=== PATIENT | female | born 1925 | race Caucasian/White ===

== ENCOUNTER 2016-10-05 17:15 | Observation (INO) | payer OTHER ==
[~2016-10-05] VITALS: Ht 170.2 cm; Wt 47.9 kg
[~2016-10-05 17:15] MED LIST: AGG PO; CALCIUM CARBONATE 1250 MG/5 ML PO; CHOL100010 PO; KPP250 PO; LEVO-217 PO; LPT20 PO; VSC/5 PO; VTMB12 PO
[2016-10-05] MEDS ORDERED: SODIUM CHLORIDE 0.9% 1000ML 1,000 ML IV SCH (17:30)
--- NOTE | 2016-10-05 17:47 | DIAGNOSTIC IMAGING REPORT ---
CHEST ONE VIEW PORTABLE CLINICAL HISTORY: Stroke COMPARISON STUDY: 08/13/2014 FINDINGS: The heart is mildly enlarged. There is aortic tortuosity. There is no overt failure. There is no focal pulmonary consolidation. There are no significant pleural effusions.[ IMPRESSION: AP portable study. No acute findings. Electronically signed by: Freedom Moctezuma M.D. 10/05/2016 5:46 PM Dictated Date/Time: 10/05/2016 5:46 PM
[2016-10-05 18:00] LABS: BASO % 0.6 %; BASO ABS # 0.04 K/uL (0-0.2); COMPLETE YES; EOS % 2.6 %; HEMATOCRIT 37.5 % (37-47); IG% 0.2 %; LYMPH % 21.2 %; LYMPH ABS # 1.33 K/uL (1.2-3.4); MEAN CELL VOLUME 90.4 fL (80-100); MEAN CORPUSCULAR HEMOGLOBIN 31.1 pg (25-34); MEAN CORPUSCULAR HGB CONC 34.4 g/dl (32-36); MONO % 7.5 %; NEUT % 67.9 %; PLATELET COUNT 225 K/uL (130-400); RED BLOOD COUNT 4.15 M/uL (4.2-5.4); WHITE BLOOD COUNT 6.27 K/uL (4.8-10.8)
--- NOTE | 2016-10-05 18:01 | EMERGENCY ROOM VISIT NOTE ---
History Report prepared by Michelle: Cooper Oswald Under the Supervision of: Dr. Curt Tapia M.D. First contact with patient: 17:27 Chief Complaint: STROKE SYMPTOMS Stated Complaint: TROUBLE SPEAKING, SOUNDS INSTEAD OF WORDS History of Present Illness The patient is an 89 year old female who presents to the Emergency Room with complaints of difficulty speaking that started around 1550 today (1hr, 15 min ago). These symptoms began to resolve on the way into the ED. Per the patient's daughter, the patient experienced an episode of "using sounds instead of words. " She was also experiencing a headache at this time. The patient did not experience facial drooping or weakness. Per the patient's , the patient does not take blood thinners regularly. The patient has no past neurological history. The patient has no complaints at this time. Source of History: patient, family, spouse/significant other Onset: 1550 today Position: other (Neurological System ) Timing: resolved Modifying Factors (Worsening): other (None) Associated Symptoms: + headache, No weakness Review of Systems See HPI for pertinent positives & negatives. A total of 10 systems reviewed and were otherwise negative. Past Medical & Surgical Medical Problems: (1) COPD (chronic obstructive pulmonary disease) (2) GERD (gastroesophageal reflux disease) (3) Hx of TIA (transient ischemic attack) and stroke (4) Hypertension (5) Hypothyroidism (6) Migraines (7) Osteoporosis (8) Urinary tract infection Surgical Problems: (1) S/P appendectomy (2) S/P hip replacement (3) S/P tonsillectomy and adenoidectomy Family History FHx: heart disease Hypertension Social History Smoking Status: Never Smoker Alcohol Use: none Drug Use: none Marital Status: Housing Status: lives with family Occupation Status: retired Current/Historical Medications Scheduled Atorvastatin (Atorvastatin Calcium), 20 MG PO QAM Calcium Carbonate (Calcium Carbonate), 5 ML PO DAILY Cholecalciferol (D3), 800 UNIT PO QAM Clopidogrel Bisulfate (Clopidogrel), 75 MG PO QAM Donepezil HCl (Donepezil HCl), 10 MG PO HS Levetiractam (Keppra), 250 MG PO BID Levothyroxine Sodium (Levothyroxine Sodium), 50 MCG PO QAM Allergies Coded Allergies: Sulfa Drugs (Verified Allergy, Mild, 10/05/16) Physical Exam Vital Signs Date Time Temp Pulse Resp B/P Pulse Ox O2 Delivery O2 Flow Rate FiO2 10/05/16 18:59 68 16 149/76 97 Room Air 10/05/16 18:30 69 16 131/73 97 Room Air 10/05/16 18:18 72 16 141/77 96 Room Air 10/05/16 18:02 64 18 12/93 98 Room Air 10/05/16 18:00 69 10/05/16 17:41 96 Room Air 10/05/16 17:40 65 18 130/65 97 Room Air 10/05/16 17:20 37.0 78 18 135/67 96 Room Air Physical Exam GENERAL: Patient is in no acute distress. HEENT: No acute trauma, normocephalic atraumatic, mucous membranes moist, no nasal congestion, no scleral icterus. NECK: No stridor, no adenopathy, no meningismus, trachea is midline. LUNGS: Clear to auscultation bilaterally, no wheeze, no rhonchi, breath sounds equal. HEART: Without murmurs gallops or rubs, regular rate and rhythm. ABDOMEN: Soft, nontender, bowel sounds positive, no hernias, no peritonitis. EXTREMITIES: No cyanosis or edema, full range of motion of all the joints without pain or difficulty, no signs for acute trauma. NEUROLOGIC: No facial droop or speech slur. No pronator drift or cerebellar dysfunction. Oriented x 3, no acute motor or sensory deficits, no focal weakness. SKIN: No rash, no jaundice, no diaphoresis. Medical Decision & Procedures ER Provider Diagnostic Interpretation: X ray results and stated below per my interpretation and radiologist interpretation. Other radiology results and stated below per my review and radiologist interpretation: CT HEAD WITHOUT CONTRAST (CT) CLINICAL HISTORY: Stroke COMPARISON STUDY: CT scan dated 08/13/2014 TECHNIQUE: Axial CT of the brain is performed from the vertex to the skull base. IV contrast was not administered for this examination. CT DOSE: 638.56 mGycm FINDINGS: No intra or extra-axial mass lesions are visualized. There is no CT evidence of acute cortical infarction. There is no evidence of midline shift. There is no acute hemorrhage. No calvarial fractures are visualized. There are patchy white matter hypodensities likely on a small vessel basis. 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 There is no evidence of pathologic ventricular dilatation. There is no evidence of acute sinusitis IMPRESSION: No acute intracranial findings Electronically signed by: Freedom Moctezuma M.D. 10/05/2016 6:19 PM Dictated Date/Time: 10/05/2016 6:17 PM CHEST ONE VIEW PORTABLE CLINICAL HISTORY: Stroke COMPARISON STUDY: 08/13/2014 FINDINGS: The heart is mildly enlarged. There is aortic tortuosity. There is no overt failure. There is no focal pulmonary consolidation. There are no significant pleural effusions.[ IMPRESSION: AP portable study. No acute findings. Electronically signed by: Freedom Moctezuma M.D. 10/05/2016 5:46 PM Dictated Date/Time: 10/05/2016 5:46 PM Laboratory Results 10/05/16 17:45 Red Blood Count 4.15, Mean Corpuscular Volume 90.4, Mean Corpuscular Hemoglobin 31.1, Mean Corpuscular Hemoglobin Concent 34.4, Mean Platelet Volume 10.0, Neutrophils (%) (Auto) 67.9, Lymphocytes (%) (Auto) 21.2, Monocytes (%) (Auto) 7.5, Eosinophils (%) (Auto) 2.6, Basophils (%) (Auto) 0.6, Neutrophils # (Auto) 4.26, Lymphocytes # (Auto) 1.33, Monocytes # (Auto) 0.47, Eosinophils # (Auto) 0.16, Basophils # (Auto) 0.04 10/05/16 17:45 Test 10/05/16 17:45 10/05/16 19:00 White Blood Count 6.27 K/uL (4.8-10.8) Red Blood Count 4.15 M/uL (4.2-5.4) Hemoglobin 12.9 g/dL (12.0-16.0) Hematocrit 37.5 % (37-47) Mean Corpuscular Volume 90.4 fL (80-100) Mean Corpuscular Hemoglobin 31.1 pg (25-34) Mean Corpuscular Hemoglobin Concent 34.4 g/dl (32-36) Platelet Count 225 K/uL (130-400) Mean Platelet Volume 10.0 fL (7.4-10.4) Neutrophils (%) (Auto) 67.9 % Lymphocytes (%) (Auto) 21.2 % Monocytes (%) (Auto) 7.5 % Eosinophils (%) (Auto) 2.6 % Basophils (%) (Auto) 0.6 % Neutrophils # (Auto) 4.26 K/uL (1.4-6.5) Lymphocytes # (Auto) 1.33 K/uL (1.2-3.4) Monocytes # (Auto) 0.47 K/uL (0.11-0.59) Eosinophils # (Auto) 0.16 K/uL (0-0.5) Basophils # (Auto) 0.04 K/uL (0-0.2) RDW Standard Deviation 47.3 fL (36.4-46.3) RDW Coefficient of Variation 14.2 % (11.5-14.5) Immature Granulocyte % (Auto) 0.2 % Immature Granulocyte # (Auto) 0.01 K/uL (0.00-0.02) Prothrombin Time 9.8 SECONDS (9.0-12.0) Prothromb Time International Ratio 0.9 (0.9-1.1) Activated Partial Thromboplast Time 23.6 SECONDS (21.0-31.0) Partial Thromboplastin Ratio 0.9 Anion Gap 10.0 mmol/L (3-11) Est Creatinine Clear Calc Drug Dose 28.9 ml/min Estimated GFR () 57.8 Estimated GFR (Non- 49.9 BUN/Creatinine Ratio 28.3 (10-20) Calcium Level 8.7 mg/dl (8.5-10.1) Total Creatine Kinase 177 U/L (26-192) Creatine Kinase MB 2.1 ng/ml (0.5-3.6) Creatine Kinase MB Ratio 1.2 (0-3.0) Troponin I < 0.015 ng/ml (0-0.045) Laboratory results reviewed by me. Medications Administered Medications (Trade) Dose Ordered Sig/Luis Alberto Route Start Time Stop Time Status Last Admin Dose Admin Sodium Chloride (Nss 1000ml) 1,000 ml @ 50 mls/hr Q20H IV 10/05/16 17:30 11/04/16 17:29 10/05/16 17:54 50 MLS/HR Aspirin (Aspirin Chew) 324 mg NOW STAT PO 10/05/16 18:33 10/05/16 18:35 DC 10/05/16 18:57 324 MG ECG Indication: altered mental status Rate (beats per minute): 67 Rhythm: normal sinus Findings: RBBB, no acute ischemic change, no ectopy ED Course 172: The patient was evaluated in room A3. A complete history and physical exam was performed. 173: Ordered Sodium Chloride 1,000 ml @ 50 mls/hr IV. 183: Ordered Aspirin 324 mg PO. 183: Discussed the patient's case with Dr. Mcrae ([facility]). The patient will be evaluated for further management. 1845: I updated the patient and her family on the treatment plan. They agreeable at this time. Medical Decision Differential diagnosis includes but is not limited to TIA, CVA, intracranial bleeding, intracranial mass, infection, UTI, dysrhythmia, electrolyte imbalance. There is no leukocytosis or worrisome anemia. No significant electrolyte abnormality or kidney failure. EKG shows a normal sinus rhythm with a right bundle branch block. No acute ischemia. Cardiac enzyme testing 1 is not suggestive of acute cardiac injury. Chest x-ray shows some chronic findings, no CHF or pneumonia. Brain CT shows no bleed or mass effect. There was no coagulopathy. On my exam, there were no focal neurologic deficits. The patient 's speech issues had resolved. Patient received a small amount of IV saline, she was given oral aspirin. She has remained symptom-free here in the emergency room. I talked to the patient and her family, I talked with case management. Given the concern for TIA/CVA, admission/observation was warranted. The on-call hospitalist was consulted. Consults Time Called: 1833 Consulting Physician: Dr. Mcrae ([facility]) Returned Call: [phone] Discussed the patient's case with Dr. Mcrae ([facility]). The patient will be evaluated for further management. Impression Primary Impression: Stroke-like symptoms Scribe Attestation The scribe's documentation has been prepared under my direction and personally reviewed by me in its entirety. I confirm that the note above accurately reflects all work, treatment, procedures, and medical decision making performed by me. Departure Information Dispostion Being Evaluated By Hospitalist Referrals Hi Carbajal M.D. (PCP) Patient Instructions [facility]
[2016-10-05 18:03] LABS: INR 0.9 (0.9-1.1); PARTIAL THROMBOPLASTIN RATIO 0.9; PROTHROMBIN TIME (PATIENT) 9.8 SECONDS (9.0-12.0)
--- NOTE | 2016-10-05 18:20 | DIAGNOSTIC IMAGING REPORT ---
CT HEAD WITHOUT CONTRAST (CT) CLINICAL HISTORY: Stroke COMPARISON STUDY: CT scan dated 08/13/2014 TECHNIQUE: Axial CT of the brain is performed from the vertex to the skull base. IV contrast was not administered for this examination. CT DOSE: 638.56 mGycm FINDINGS: No intra or extra-axial mass lesions are visualized. There is no CT evidence of acute cortical infarction. There is no evidence of midline shift. There is no acute hemorrhage. No calvarial fractures are visualized. There are patchy white matter hypodensities likely on a small vessel basis. 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 There is no evidence of pathologic ventricular dilatation. There is no evidence of acute sinusitis IMPRESSION: No acute intracranial findings Electronically signed by: Freedom Moctezuma M.D. 10/05/2016 6:19 PM Dictated Date/Time: 10/05/2016 6:17 PM
[2016-10-05 18:21] LABS: BLOOD UREA NITROGEN 28 mg/dl (7-18); BUN/CREATININE RATIO 28.3 (10-20); CALCIUM 8.7 mg/dl (8.5-10.1); CARBON DIOXIDE 26 mmol/L (21-32); CHLORIDE 105 mmol/L (98-107); GLUCOSE 94 mg/dl (70-99); POTASSIUM 4.2 mmol/L (3.5-5.1); SODIUM 141 mmol/L (136-145)
[2016-10-05 18:25] LABS: CKMB/CK RATIO 1.2 (0-3.0)
[2016-10-05] MEDS ORDERED: ARC10 PO (18:32)
[2016-10-05] MEDS ORDERED: CALC1250 PO (18:32)
[2016-10-05] MEDS ORDERED: PLV75 PO (18:32)
[2016-10-05] MEDS ORDERED: LPT/20 PO (18:32)
[2016-10-05] MEDS ORDERED: CHOL1CAP12 PO (18:32)
[2016-10-05] MEDS ORDERED: KPP/250 PO (18:32)
[2016-10-05] MEDS ORDERED: LEVO50TA6 PO (18:32)
[2016-10-05] MEDS ORDERED: ASPIRIN 81 MG CHEW PO STA (18:33)
[2016-10-05] MEDS ORDERED: POLYETHYLENE (MIRALAX) 17 GM PACK PO PRN (19:15)
[2016-10-05] MEDS ORDERED: ALUMINUM/MAGNESIUM/SIMETH (MAALOX MAX) 30 ML UDC PO PRN (19:15)
[2016-10-05] MEDS ORDERED: MAGNESIUM HYDROXIDE SUSP 30 ML UDC PO PRN (19:15)
[2016-10-05] MEDS ORDERED: ONDANSETRON INJ 2 MG/ML 2 ML VIAL IV PRN (19:15)
[2016-10-05 19:25] LABS: BENZODIAZEPINE, URINE NEG (NEG); COCAINE,URINE NEG (NEG); PHENCYCLIDINE, URINE NEG (NEG)
--- NOTE | 2016-10-05 20:00 | HISTORY & PHYSICAL EXAMINATION ---
DATE OF ADMISSION: 10/05/2016 CHIEF COMPLAINT: Trouble speaking. HISTORY OF PRESENT ILLNESS: This is an 89-year-old female who presents to Emergency Room with difficulty speaking that started around 4:00 p.m. The symptoms lasted for about 30 minutes and resulted in the way to Emergency Room. As per patient's daughter, patient experienced episode of incoherent sounds instead of words. She was also experiencing headache at that time but did not have any facial droop or weakness. As per patient's , she did not take her blood thinners regularly. She has no past neurological history. She has no complaints. REVIEW OF SYSTEMS: Negative except as above. Ten out of 14 systems were reviewed. PAST MEDICAL HISTORY: COPD, GERD, TIA, hypertension, hypothyroidism, migraine, osteoporosis, urinary tract infection, appendectomy, hip replacement, tonsillectomy. FAMILY HISTORY: Heart disease, hypertension. SOCIAL HISTORY: Does not smoke, does not drink, does not use drugs. . MEDICATIONS: Atorvastatin 20 mg p.o. daily, calcium carbonate 5 mg p.o. daily, cholecalciferol 800 international units p.o. daily, Plavix 75 mg p.o. daily, donepezil 10 mg p.o. at bedtime, Keppra 250 mg p.o. b.i.d., levothyroxine 50 mcg p.o. daily. ALLERGIES: SULFA DRUGS. PHYSICAL EXAMINATION: VITAL SIGNS: Temperature 37.0, pulse 68, respirations 16, blood pressure 149/76, 97% on room air. GENERAL: Not in acute distress. HEENT: Normocephalic, atraumatic. PERRLA, EOMI. Mouth moist, no lesions. NECK: No JVD. Trachea midline. Throat is not enlarged. LUNGS: Clear to auscultation bilateral. No wheezes, no rhonchi. HEART: S1, S2, RRR. ABDOMEN: Soft, nontender, nondistended. Bowel sounds present bilateral. EXTREMITIES: No clubbing, cyanosis or edema. NEUROLOGICAL: Cranial nerves II-XII are intact. Motor sensory are normal. Deep tendon reflexes 2+ bilateral. Gait was not checked. No facial droop or speech problem, oriented x3. SKIN: No rash. No jaundice. LYMPHATIC: No pathological lymphadenopathy. CT scan of the head, no acute intracranial abnormalities. Chest x-ray normal. LABORATORY DATA: CBC normal. BMP normal except for BUN of 28. EK beats per minute, right bundle branch block. No acute ST-T wave changes. ASSESSMENT AND PLAN: This is an 89-year-old female who comes with difficulty speaking. 1. Transient ischemic attack. Admit to telemetry. Check lipid profile in the morning. Check MRI of the brain, ultrasound of carotids, ultrasound of the heart. Continue with Plavix. physical therapy and occupational therapy evaluation. Continue Lipitor. The patient received oral aspirin in the Emergency Room. 2. Hypothyroidism. Continue levothyroxine 50 mcg p.o. daily. 3. Mild dementia. Continue Aricept 10 mg p.o. daily. 4. Deep venous thrombosis and gastrointestinal prophylaxis. The patient is a full code. TIME SPENT ON DOING THIS ADMISSION: 40 minutes. KATERIN
--- NOTE | 2016-10-05 20:29 | DIAGNOSTIC IMAGING REPORT ---
ULTRASOUND OF THE CAROTID ARTERIES CLINICAL HISTORY: carotid artery stenosis COMPARISON STUDY: 08/13/2014 TECHNIQUE: Real-time, grayscale, and color Doppler sonography of the carotid arteries was performed. Imaging reviewed in the transverse and longitudinal planes. NASCET criteria was utilized for stenosis calcification. FINDINGS: There is minimal atherosclerotic plaque present . The peak systolic velocity within the right internal carotid artery is 51 cm/sec. The systolic velocity ratio of right internal to common carotid artery is 0.8. The peak systolic velocity within the left internal carotid artery is 81 cm/sec. The systolic velocity ratio left internal to common carotid artery is 1.7. Antegrade flow is seen in the vertebral arteries. The external carotid arteries are patent. IMPRESSION: No evidence of hemodynamically significant carotid stenosis. Electronically signed by: Freedom Moctezuma M.D. 10/05/2016 8:27 PM Dictated Date/Time: 10/05/2016 8:26 PM
[2016-10-05] MEDS ORDERED: DONEPEZIL HCL 10 MG TAB PO SCH (21:00)
[2016-10-05] MEDS ORDERED: IV FLUIDS COMPLETED PRN (21:15)
--- NOTE | 2016-10-05 21:16 | DIAGNOSTIC IMAGING REPORT ---
MRI OF THE BRAIN WITHOUT CONTRAST CLINICAL HISTORY: Difficulty speaking. Transient ischemic attack. COMPARISON STUDY: Head CT dated 10/05/2016, MRI the brain dated 08/13/2014 FINDINGS: Sagittal T1, axial diffusion, proton density and T2 weighted axial, coronal FLAIR, and axial T1-weighted images were acquired. No intra or extra-axial mass lesions are visualized Axial diffusion-weighted images reveal no evidence of acute or subacute infarction. There is mild ventricular dilatation, in keeping with the degree of volume loss. Proton density T2-weighted and FLAIR images reveal scattered foci of increased T2 signal within the white matter, likely on a small vessel basis. There are no abnormal flow voids. IMPRESSION: 1. No acute intracranial findings 2. No evidence of acute or subacute infarction 3. No evidence of intracranial mass on this noncontrast study Electronically signed by: Freedom Moctezuma M.D. 10/05/2016 9:15 PM Dictated Date/Time: 10/05/2016 9:12 PM
[2016-10-05 22:00] VITALS: BP 162/84; PULSE 77; TEMP 36.4; O2SAT 96; Ht 170.2 cm; Wt 47.9 kg
[2016-10-05] MEDS: LEVETIRACETAM 250 MG TAB PO SCH (22:09)
[2016-10-05] MEDS: HEPARIN SOD 5000 UNIT/0.5 ML CARP SQ SCH (22:10)
[2016-10-05 23:06] VITALS: BP 100/59; PULSE 79; TEMP 36.6; O2SAT 95
[2016-10-06 03:03] VITALS: BP 129/75; PULSE 79; TEMP 36.5; O2SAT 95
[2016-10-06] MEDS ORDERED: LEVOTHYROXINE 50 MCG TAB PO SCH (06:30)
[2016-10-06 06:46] LABS: BASO % 0.7 %; BASO ABS # 0.04 K/uL (0-0.2); COMPLETE YES; EOS % 3.6 %; HEMATOCRIT 36.1 % (37-47); IG% 0.4 %; LYMPH % 23.8 %; LYMPH ABS # 1.27 K/uL (1.2-3.4); MEAN CELL VOLUME 90.3 fL (80-100); MEAN CORPUSCULAR HEMOGLOBIN 31.3 pg (25-34); MEAN CORPUSCULAR HGB CONC 34.6 g/dl (32-36); MEAN PLATELET VOLUME 10.1 fL (7.4-10.4); MONO % 9.2 %; NEUT % 62.3 %; PLATELET COUNT 205 K/uL (130-400); WHITE BLOOD COUNT 5.34 K/uL (4.8-10.8)
[2016-10-06 07:23] LABS: BUN/CREATININE RATIO 18.9 (10-20); CALCIUM 8.4 mg/dl (8.5-10.1); CHOLESTEROL/HDL RATIO 2.2; CREATININE 0.96 mg/dl (0.60-1.20)
[2016-10-06 07:33] VITALS: BP 148/74; PULSE 66; TEMP 36.3; O2SAT 95
[2016-10-06] MEDS: LEVETIRACETAM 250 MG TAB PO SCH (07:47)
[2016-10-06] MEDS: HEPARIN SOD 5000 UNIT/0.5 ML CARP SQ SCH (07:50)
[2016-10-06] MEDS ORDERED: ATORVASTATIN 20 MG TAB PO SCH (09:00)
[2016-10-06] MEDS ORDERED: CALCIUM CARBONATE 1250 MG/5 ML PO SCH (09:00)
[2016-10-06] MEDS ORDERED: CLOPIDOGREL BISULFATE 75 MG TAB PO SCH (09:00)
[2016-10-06 10:08] LABS: URINE APPEARANCE CLEAR (CLEAR); URINE BILIRUBIN NEG (NEG); URINE COLOR YELLOW; URINE EPITHELIAL CELL AUTO 0-5 /lpf (0-5); URINE NITRITE NEG (NEG); URINE PH 6.5 (4.5-7.5); URINE SPECIFIC GRAVITY 1.007 (1.000-1.030); UROBILINOGEN NEG (NEG); ZZUR CULT IF INDIC CLEAN CATCH NO
[2016-10-06 10:15] LABS: MANUAL MICROSCOPIC REQUIRED? NO; REVIEW REQ? NO
--- NOTE | 2016-10-06 11:16 | ECHOCARDIOGRAM REPORT ---
*NOTICE TO RECEIVING [employer] This information is strictly Confidential and protected under [place] law. [place] law prohibits you from making any further disclosure of this information unless further disclosure is expressly permitted by the written consent of the person to whom it pertains or is authorized by law. A general authorization for the release of medical or other information is not sufficient for this purpose. Hospital accepts no responsibility if the information is made available to any other person, INCLUDING THE PATIENT. Interpretation Summary * Name: MEGAN IFNE Study Date: 10/06/2016 08:01 AM BP: 148/74 mmHg * Patient Location: [facility]\S\N276\S\1 HR: 68 * : 1925 (M/d/yyyy) Gender: Female Height: 67 in * Age: 89 yrs Ethnicity: CA Weight: 105 lb * Ordering Physician: Jim Mcrae * Referring Physician: Self, Referred * Performed By: Radha Newman RCS * * Reason For Study: CVA * BSA: 1.5 m2 * -- Conclusions -- * 1. Normal LV size and wall thickness. * 2. Normal LV systolic function. LVEF 60-65%. No regional wall motion abnormalities. * 3. Normal RV size and function. * 4. Mild aortic regurgitation. * 5. Moderate mitral annular calcification. Trace MR. * 6. Grade I diastolic dysfunction. * 7. Normal estimated PA and RA pressures. * 8. No cardiac source of emboli identified. Prior saline contrast study in 2013 was negative. * 9. Compared with prior study on 08/14/2014: No significant changes. Procedure Details * Left Ventricle The left ventricle is grossly normal size. There is normal left ventricular wall thickness. Ejection Fraction = 60-65%. No regional wall motion abnormalities noted. * Right Ventricle The right ventricle is grossly normal size. The right ventricular systolic function is normal as assessed by tricuspid annular plane systolic excursion (TAPSE) (normal >1.5 cm). * Atria The left atrial size is normal. Right atrial size is normal. No ASD detected; PFO is not assessed. * Mitral Valve There is moderate mitral annular calcification. There is no mitral valve stenosis. There is trace mitral regurgitation. * Tricuspid Valve The tricuspid valve is not well visualized, but is grossly normal. There is trace tricuspid regurgitation. Right ventricular systolic pressure is normal. * Aortic Valve No hemodynamically significant valvular aortic stenosis. Mild aortic regurgitation. * Pulmonic Valve The pulmonary valve is inadequately visualized, but the Doppler data is adequate for interpretation. There is no pulmonic valvular stenosis. There is no pulmonic valvular regurgitation. * Great Vessels The aortic root and proximal ascending aorta are normal sized. * Pericardium/Pleural There is no pericardial effusion. * Great Vessels Normal inferior vena cava size and collapsability with sniff indicates a normal right atrial pressure of 3 mmHg * Left Ventricular Diastolic Function Grade I diastolic dysfunction, (abnormal relaxation pattern). * * MMode 2D Measurements and Calculations * IVSd 0.89 cm * IVSs 0.96 cm * * LVIDd 3.9 cm * LVIDs 3.1 cm * LVPWd 0.79 cm * LVPWs 0.89 cm * * IVS/LVPW 1.1 * FS 20.4 % * EDV(Teich) 66.7 ml * ESV(Teich) 38.5 ml * EF(Teich) 42.2 % * * EDV(cubed) 60.2 ml * ESV(cubed) 30.4 ml * EF(cubed) 49.5 % * % IVS thick 7.6 % * % LVPW thick 13.1 % * * LV mass(C)d 96.6 grams * LV mass(C)dI 62.8 grams/m\S\2 * LV mass(C)s 77.6 grams * LV mass(C)sI 50.5 grams/m\S\2 * * SV(Teich) 28.2 ml * SI(Teich) 18.3 ml/m\S\2 * SV(cubed) 29.8 ml * SI(cubed) 19.4 ml/m\S\2 * * Ao root diam 3.7 cm * Ao root area 10.9 cm\S\2 * LA dimension 2.9 cm * * LA/Ao 0.78 * LVOT diam 1.7 cm * LVOT area 2.2 cm\S\2 * * LVAd ap4 27.1 cm\S\2 * LVLd ap4 7.3 cm * EDV(MOD-sp4) 84.3 ml * EDV(sp4-el) 85.8 ml * LVAs ap4 14.3 cm\S\2 * LVLs ap4 5.9 cm * ESV(MOD-sp4) 30.3 ml * ESV(sp4-el) 29.4 ml * EF(MOD-sp4) 64.1 % * EF(sp4-el) 65.8 % * * LVAd ap2 23.1 cm\S\2 * LVLd ap2 7.0 cm * EDV(MOD-sp2) 64.4 ml * EDV(sp2-el) 65.2 ml * LVAs ap2 13.1 cm\S\2 * LVLs ap2 6.0 cm * ESV(MOD-sp2) 25.0 ml * ESV(sp2-el) 24.5 ml * EF(MOD-sp2) 61.2 % * EF(sp2-el) 62.4 % * * LVLd %diff -4.67 % * EDV(MOD-bp) 74.1 ml * LVLs %diff 0.66 % * ESV(MOD-bp) 27.6 ml * EF(MOD-bp) 62.8 % * * SV(MOD-sp4) 54.0 ml * SI(MOD-sp4) 35.1 ml/m\S\2 * * SV(MOD-sp2) 39.4 ml * SI(MOD-sp2) 25.6 ml/m\S\2 * * SV(MOD-bp) 46.5 ml * SI(MOD-bp) 30.3 ml/m\S\2 * * SV(sp4-el) 56.4 ml * SI(sp4-el) 36.7 ml/m\S\2 * * SV(sp2-el) 40.7 ml * SI(sp2-el) 26.5 ml/m\S\2 * * * Doppler Measurements and Calculations * MV E max ryann 71.2 cm/sec * MV A max ryann 101.4 cm/sec * * MV E/A 0.70 * * MV P1/2t max ryann 82.4 cm/sec * MV P1/2t 116.2 msec * MVA(P1/2t) 1.9 cm\S\2 * MV dec slope 207.7 cm/sec\S\2 * MV dec time 0.35 sec * * Ao V2 max 123.3 cm/sec * Ao max PG 6.1 mmHg * Ao max PG (full) 3.1 mmHg * MICHAEL(V,A) 1.5 cm\S\2 * MICHAEL(V,D) 1.5 cm\S\2 * * AI max ryann 376.2 cm/sec * AI max PG 56.6 mmHg * AI dec slope 139.9 cm/sec\S\2 * AI P1/2t 787.9 msec * * LV V1 max PG 2.9 mmHg * * LV V1 max 85.7 cm/sec * * TR max ryann 205.1 cm/sec * *
[2016-10-06 11:20] VITALS: BP 117/71; PULSE 82; TEMP 36.6; O2SAT 95
--- NOTE | 2016-10-06 14:04 | Discharge Summary ---
Discharge Summary Admission Date: Oct 05, 2016 at 19:07 Discharge Date: Oct 06, 2016 Discharge Disposition: Home Principal Diagnosis: TIA Problems/Secondary Diagnoses: 1. Hypothyroidism 2. Dementia 3. Partial seizures Immunizations: Have You Had Influenza Vaccine: Yes Influenza Vaccine Date: Jun 23, 2010 History of Tetanus Vaccine?: Yes History of Pneumococcal: Yes Pneumococcal Date: Jun 23, 2010 History of Hepatitis B Vaccine: Unknown Procedures: CT HEAD WITHOUT CONTRAST (CT) CLINICAL HISTORY: Stroke COMPARISON STUDY: CT scan dated 08/13/2014 TECHNIQUE: Axial CT of the brain is performed from the vertex to the skull base. IV contrast was not administered for this examination. CT DOSE: 638.56 mGycm FINDINGS: No intra or extra-axial mass lesions are visualized. There is no CT evidence of acute cortical infarction. There is no evidence of midline shift. There is no acute hemorrhage. No calvarial fractures are visualized. There are patchy white matter hypodensities likely on a small vessel basis. 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 There is no evidence of pathologic ventricular dilatation. There is no evidence of acute sinusitis IMPRESSION: No acute intracranial findings Electronically signed by: Freedom Moctezuma M.D. 10/05/2016 6:19 PM Dictated Date/Time: 10/05/2016 6:17 PM The status of this report is Signed. Draft = Not yet reviewed or approved by Radiologist. Signed = Reviewed and approved by Radiologist. CHEST ONE VIEW PORTABLE CLINICAL HISTORY: Stroke COMPARISON STUDY: 08/13/2014 FINDINGS: The heart is mildly enlarged. There is aortic tortuosity. There is no overt failure. There is no focal pulmonary consolidation. There are no significant pleural effusions.[ IMPRESSION: AP portable study. No acute findings. Electronically signed by: Freedom Moctezuma M.D. 10/05/2016 5:46 PM Dictated Date/Time: 10/05/2016 5:46 PM The status of this report is Signed. Draft = Not yet reviewed or approved by Radiologist. Signed = Reviewed and approved by Radiologist. ULTRASOUND OF THE CAROTID ARTERIES CLINICAL HISTORY: carotid artery stenosis COMPARISON STUDY: 08/13/2014 TECHNIQUE: Real-time, grayscale, and color Doppler sonography of the carotid arteries was performed. Imaging reviewed in the transverse and longitudinal planes. NASCET criteria was utilized for stenosis calcification. FINDINGS: There is minimal atherosclerotic plaque present . The peak systolic velocity within the right internal carotid artery is 51 cm/sec. The systolic velocity ratio of right internal to common carotid artery is 0.8. The peak systolic velocity within the left internal carotid artery is 81 cm/sec. The systolic velocity ratio left internal to common carotid artery is 1.7. Antegrade flow is seen in the vertebral arteries. The external carotid arteries are patent. IMPRESSION: No evidence of hemodynamically significant carotid stenosis. Electronically signed by: Freedom Moctezuma M.D. 10/05/2016 8:27 PM Dictated Date/Time: 10/05/2016 8:26 PM The status of this report is Signed. Draft = Not yet reviewed or approved by Radiologist. Signed = Reviewed and approved by Radiologist. MRI OF THE BRAIN WITHOUT CONTRAST CLINICAL HISTORY: Difficulty speaking. Transient ischemic attack. COMPARISON STUDY: Head CT dated 10/05/2016, MRI the brain dated 08/13/2014 FINDINGS: Sagittal T1, axial diffusion, proton density and T2 weighted axial, coronal FLAIR, and axial T1-weighted images were acquired. No intra or extra-axial mass lesions are visualized Axial diffusion-weighted images reveal no evidence of acute or subacute infarction. There is mild ventricular dilatation, in keeping with the degree of volume loss. Proton density T2-weighted and FLAIR images reveal scattered foci of increased T2 signal within the white matter, likely on a small vessel basis. There are no abnormal flow voids. IMPRESSION: 1. No acute intracranial findings 2. No evidence of acute or subacute infarction 3. No evidence of intracranial mass on this noncontrast study Electronically signed by: Freedom Moctezuma M.D. 10/05/2016 9:15 PM Dictated Date/Time: 10/05/2016 9:12 PM The status of this report is Signed. Draft = Not yet reviewed or approved by Radiologist. Signed = Reviewed and approved by Radiologist. ECHOCARDIOGRAM: Interpretation Summary * Name: MEGAN FINE Study Date: 10/06/2016 08:01 AM BP: 148/74 mmHg * Patient Location: [facility]\\[id number] HR: 68 * : 1925 (M/d/yyyy) Gender: Female Height: 67 in * Age: 89 yrs Ethnicity: [place] Weight: 105 lb * Ordering Physician: Jim Mcrae * Referring Physician: Self, Referred * Performed By: Radha Newman, [facility] * * Reason For Study: CVA * BSA: 1.5 m2 * -- Conclusions -- * 1. Normal LV size and wall thickness. * 2. Normal LV systolic function. LVEF 60-65%. No regional wall motion abnormalities. * 3. Normal RV size and function. * 4. Mild aortic regurgitation. * 5. Moderate mitral annular calcification. Trace MR. * 6. Grade I diastolic dysfunction. * 7. Normal estimated PA and RA pressures. * 8. No cardiac source of emboli identified. Prior saline contrast study in 2013 was negative. * 9. Compared with prior study on 08/14/2014: No significant changes. Procedure Details * Left Ventricle The left ventricle is grossly normal size. There is normal left ventricular wall thickness. Ejection Fraction = 60-65%. No regional wall motion abnormalities noted. * Right Ventricle The right ventricle is grossly normal size. The right ventricular systolic function is normal as assessed by tricuspid annular plane systolic excursion (TAPSE) (normal >1.5 cm). * Atria The left atrial size is normal. Right atrial size is normal. No ASD detected; PFO is not assessed. * Mitral Valve There is moderate mitral annular calcification. There is no mitral valve stenosis. There is trace mitral regurgitation. * Tricuspid Valve The tricuspid valve is not well visualized, but is grossly normal. There is trace tricuspid regurgitation. Right ventricular systolic pressure is normal. * Aortic Valve No hemodynamically significant valvular aortic stenosis. Mild aortic regurgitation. * Pulmonic Valve The pulmonary valve is inadequately visualized, but the Doppler data is adequate for interpretation. There is no pulmonic valvular stenosis. There is no pulmonic valvular regurgitation. * Great Vessels The aortic root and proximal ascending aorta are normal sized. * Pericardium/Pleural There is no pericardial effusion. * Great Vessels Normal inferior vena cava size and collapsability with sniff indicates a normal right atrial pressure of 3 mmHg * Left Ventricular Diastolic Function Grade I diastolic dysfunction, (abnormal relaxation pattern). * * MMode 2D Measurements and Calculations * IVSd 0.89 cm * IVSs 0.96 cm * * LVIDd 3.9 cm * LVIDs 3.1 cm * LVPWd 0.79 cm * LVPWs 0.89 cm * * IVS/LVPW 1.1 * FS 20.4 % * EDV(Teich) 66.7 ml * ESV(Teich) 38.5 ml * EF(Teich) 42.2 % * * EDV(cubed) 60.2 ml * ESV(cubed) 30.4 ml * EF(cubed) 49.5 % * % IVS thick 7.6 % * % LVPW thick 13.1 % * * LV mass(C)d 96.6 grams * LV mass(C)dI 62.8 grams/m\S\2 * LV mass(C)s 77.6 grams * LV mass(C)sI 50.5 grams/m\S\2 * * SV(Teich) 28.2 ml * SI(Teich) 18.3 ml/m\S\2 * SV(cubed) 29.8 ml * SI(cubed) 19.4 ml/m\S\2 * * Ao root diam 3.7 cm * Ao root area 10.9 cm\S\2 * LA dimension 2.9 cm * * LA/Ao 0.78 * LVOT diam 1.7 cm * LVOT area 2.2 cm\S\2 * * LVAd ap4 27.1 cm\S\2 * LVLd ap4 7.3 cm * EDV(MOD-sp4) 84.3 ml * EDV(sp4-el) 85.8 ml * LVAs ap4 14.3 cm\S\2 * LVLs ap4 5.9 cm * ESV(MOD-sp4) 30.3 ml * ESV(sp4-el) 29.4 ml * EF(MOD-sp4) 64.1 % * EF(sp4-el) 65.8 % * * LVAd ap2 23.1 cm\S\2 * LVLd ap2 7.0 cm * EDV(MOD-sp2) 64.4 ml * EDV(sp2-el) 65.2 ml * LVAs ap2 13.1 cm\S\2 * LVLs ap2 6.0 cm * ESV(MOD-sp2) 25.0 ml * ESV(sp2-el) 24.5 ml * EF(MOD-sp2) 61.2 % * EF(sp2-el) 62.4 % * * LVLd %diff -4.67 % * EDV(MOD-bp) 74.1 ml * LVLs %diff 0.66 % * ESV(MOD-bp) 27.6 ml * EF(MOD-bp) 62.8 % * * SV(MOD-sp4) 54.0 ml * SI(MOD-sp4) 35.1 ml/m\S\2 * * SV(MOD-sp2) 39.4 ml * SI(MOD-sp2) 25.6 ml/m\S\2 * * SV(MOD-bp) 46.5 ml * SI(MOD-bp) 30.3 ml/m\S\2 * * SV(sp4-el) 56.4 ml * SI(sp4-el) 36.7 ml/m\S\2 * * SV(sp2-el) 40.7 ml * SI(sp2-el) 26.5 ml/m\S\2 * * * Doppler Measurements and Calculations * MV E max ryann 71.2 cm/sec * MV A max ryann 101.4 cm/sec * * MV E/A 0.70 * * MV P1/2t max ryann 82.4 cm/sec * MV P1/2t 116.2 msec * MVA(P1/2t) 1.9 cm\S\2 * MV dec slope 207.7 cm/sec\S\2 * MV dec time 0.35 sec * * Ao V2 max 123.3 cm/sec * Ao max PG 6.1 mmHg * Ao max PG (full) 3.1 mmHg * MICHAEL(V,A) 1.5 cm\S\2 * MICHAEL(V,D) 1.5 cm\S\2 * * AI max ryann 376.2 cm/sec * AI max PG 56.6 mmHg * AI dec slope 139.9 cm/sec\S\2 * AI P1/2t 787.9 msec * * LV V1 max PG 2.9 mmHg * * LV V1 max 85.7 cm/sec * * TR max ryann 205.1 cm/sec * * (Gina Fallon, PADinaC) Medication Reconciliation Continued Medications: Atorvastatin (Atorvastatin Calcium) 20 Mg Tab 20 MG PO QAM, #30 Calcium Carbonate (Calcium Carbonate) 1,250 Mg/5 Ml Hailee 5 ML PO DAILY, #150 Cholecalciferol (D3) 400 Unit Cap 800 UNIT PO QAM Clopidogrel Bisulfate (Clopidogrel) 75 Mg Tab 75 MG PO QAM, #30 Donepezil HCl (Donepezil HCl) 10 Mg Tab 10 MG PO HS, #30 Levetiractam (Keppra) 250 Mg Tab 250 MG PO BID, #60 Levothyroxine Sodium (Levothyroxine Sodium) 50 Mcg Tab 50 MCG PO QAM, #30 Discharge Exam Limited ROS due to dementia. Patient denies any CP, SOB, abdominal discomfort, or pain. Unsure of how reliable due to dementia. Physical Exam: General Appearance: no apparent distress, + thin Eyes: normal inspection, PERRL ENT: hearing grossly normal Neck: supple Respiratory/Chest: lungs clear, no respiratory distress, no accessory muscle use Cardiovascular: regular rate, rhythm Abdomen / GI: normal bowel sounds, non tender, soft Extremities: no calf tenderness, no pedal edema Neurologic/Psychiatric: alert, normal mood/affect, + disoriented Skin: normal color, warm/dry, no rash (Gina Fallon, PA-C) Hospital Course This is an 89-year-old female who presents to Emergency Room with difficulty speaking that started around 4:00 p.m. The symptoms lasted for about 30 minutes and resulted in the way to Emergency Room. As per patient's daughter, patient experienced episode of incoherent sounds instead of words. She was also experiencing headache at that time but did not have any facial droop or weakness. As per patient's , she did not take her blood thinners regularly. She has no past neurological history. She has no complaints. Transient ischemic attack: - Admit to telemetry - Reviewed lipid panel - Checked head CT, MRI of the brain, ultrasound of carotids and ECHO - Continue with Plavix - PT/OT evaluations - Continue Lipitor Hypothyroidism: Continue levothyroxine 50 mcg p.o. daily Mild dementia: Continue Aricept 10 mg p.o. daily Partial seizures: Continue Keppra 250 mg PO BID GI Prophylaxis: - Maalox PRN - IV Zofran PRN - Colace and/or Milk of Mag PRN DVT prophylaxis: - Heparin 5000 units SQ q12 hrs Code Status: - LEVEL I, FULL Dispo: Discharge to home Total Time Spent: Greater than 30 minutes This includes examination of the patient, discharge planning, medication reconciliation, and communication with other providers. (Gina Fallon ., PA-C) i personally examined pt and verified all white points w Gilda Vasyl PAC feeling better wants to go home. d/w family - notes that she's acting like herself again. no more speech difficulty. echo/ekg without evidence for cardioembolic, carotids without significant stenosis, likely intracranial thrombosis mechanism - BP reasonable, sugars and lipids controlled. already on plavix. d/w family not necessarily great evidence for next step w antiplatelet - discussed neurology eval -- all in agreement since pt appearing stable, very desirous of going home, and no clear evidence based answer (all expert opinion answer) that outpt neurology eval is reasonable and acceptable - will as for this to be set up expeditiously however. no focal deficits, vitals noted. TIA - stable for home, as above (Gopal Shaver, D.O.) Discharge Instructions Please refer to the electronic Patient Visit Report (Discharge Instructions) for additional information. (Gina Fallon ., PA-C) Follow-Up Please follow-up with your PCP within 5-7 days. Please follow-up/keep all of your subspecialty appointments. (Gina Fallon ., PA-C) Additional Copies To Hi Carbajal M.D.
--- NOTE | 2016-10-06 14:19 | Discharge Instructions ---
Discharge Instructions Admission Reason for Admission: TIA Discharge Discharge Diagnosis / Problem: TIA Discharge Goals Goal(s): Improve function, Diagnostic testing, Prevent Disease Progression Activity Recommendations Activity Limitations: resume your previous activity . Instructions / Follow-Up Instructions / Follow-Up Please resume all regular home medications as prescribed to you. It is VERY important that you take your medications as direct, EVERYDAY. Please follow-up with your PCP within 5-7 days. Please follow-up/keep all of your subspecialty appointments. Current Hospital Diet Patient's current hospital diet: AHA Diet (Heart Healthy) Discharge Diet Recommended Diet: AHA Diet (Heart Healthy) Procedures Procedures Performed: 1. Head CT 2. CXR 3. MRI of brain 4. Bilateral carotid u/s 5. ECHO Pending Studies Studies pending at discharge: no Laboratory Results Last 24 Hours Test 10/05/16 17:45 10/05/16 19:00 10/06/16 00:00 10/06/16 06:33 White Blood Count 6.27 K/uL 5.34 K/uL Red Blood Count 4.15 M/uL 4.00 M/uL Hemoglobin 12.9 g/dL 12.5 g/dL Hematocrit 37.5 % 36.1 % Mean Corpuscular Volume 90.4 fL 90.3 fL Mean Corpuscular Hemoglobin 31.1 pg 31.3 pg Mean Corpuscular Hemoglobin Concent 34.4 g/dl 34.6 g/dl Platelet Count 225 K/uL 205 K/uL Mean Platelet Volume 10.0 fL 10.1 fL Neutrophils (%) (Auto) 67.9 % 62.3 % Lymphocytes (%) (Auto) 21.2 % 23.8 % Monocytes (%) (Auto) 7.5 % 9.2 % Eosinophils (%) (Auto) 2.6 % 3.6 % Basophils (%) (Auto) 0.6 % 0.7 % Neutrophils # (Auto) 4.26 K/uL 3.33 K/uL Lymphocytes # (Auto) 1.33 K/uL 1.27 K/uL Monocytes # (Auto) 0.47 K/uL 0.49 K/uL Eosinophils # (Auto) 0.16 K/uL 0.19 K/uL Basophils # (Auto) 0.04 K/uL 0.04 K/uL RDW Standard Deviation 47.3 fL 46.7 fL RDW Coefficient of Variation 14.2 % 14.1 % Immature Granulocyte % (Auto) 0.2 % 0.4 % Immature Granulocyte # (Auto) 0.01 K/uL 0.02 K/uL Prothrombin Time 9.8 SECONDS Prothromb Time International Ratio 0.9 Activated Partial Thromboplast Time 23.6 SECONDS Partial Thromboplastin Ratio 0.9 Sodium Level 141 mmol/L 140 mmol/L Potassium Level 4.2 mmol/L 4.0 mmol/L Chloride Level 105 mmol/L 107 mmol/L Carbon Dioxide Level 26 mmol/L 25 mmol/L Anion Gap 10.0 mmol/L 8.0 mmol/L Blood Urea Nitrogen 28 mg/dl 18 mg/dl Creatinine 1.00 mg/dl 0.96 mg/dl Est Creatinine Clear Calc Drug Dose 28.9 ml/min 30.0 ml/min Estimated GFR () 57.8 60.8 Estimated GFR (Non- 49.9 52.4 BUN/Creatinine Ratio 28.3 18.9 Random Glucose 94 mg/dl 88 mg/dl Calcium Level 8.7 mg/dl 8.4 mg/dl Total Creatine Kinase 177 U/L Creatine Kinase MB 2.1 ng/ml Creatine Kinase MB Ratio 1.2 Troponin I < 0.015 ng/ml Urine Opiates Screen NEG Urine Methadone, Qualitative NEG Urine Barbiturates NEG Urine Phencyclidine (PCP) Level NEG Ur Amphetamine/Methamphetamine NEG MDMA (Ecstasy) Screen NEG Urine Benzodiazepines Screen NEG Urine Cocaine Metabolite NEG Urine Marijuana (THC) NEG Urine Color YELLOW Urine Appearance CLEAR Urine pH 6.5 Urine Specific [place] 1.007 Urine Protein NEG Urine Glucose (UA) NEG Urine Ketones NEG Urine Occult Blood NEG Urine Nitrite NEG Urine Bilirubin NEG Urine Urobilinogen NEG Urine Leukocyte Esterase TRACE Urine WBC (Auto) 1-5 /hpf Urine RBC (Auto) 0-4 /hpf Urine Hyaline Casts (Auto) 0 /lpf Urine Epithelial Cells (Auto) 0-5 /lpf Urine Bacteria (Auto) NEG Triglycerides Level 96 mg/dl Cholesterol Level 153 mg/dl HDL Cholesterol 69 mg/dl LDL Cholesterol, Calculated 65 mg/dl VLDL Cholesterol, Calculated 19 mg/dl Cholesterol/HDL Ratio 2.2 Lipid Panel Test 10/06/16 06:33 Range/Units Triglycerides Level 96 0-150 mg/dl Cholesterol Level 153 0-200 mg/dl HDL Cholesterol 69 mg/dl Cholesterol/HDL Ratio 2.2 LDL Cholesterol, Calculated 65 mg/dl Medical Emergencies . Who to Call and When: Medical Emergencies: If at any time you feel your situation is an emergency, please call 911 immediately. . Non-Emergent Contact Non-Emergency issues call your: Primary Care Provider Call Non-Emergent contact if: you have a fever, your pain is unusual for you, your pain is concerning you, you have any medication questions . . "Provider Documentation" section prepared by Gina Fallon. VTE Core Measure Inpt VTE Proph given/why not?: Unfractionated heparin SQ, T.E.D. Stockings, SCD 's
--- NOTE | 2016-10-06 14:27 | Hospitalist Progress Note ---
Hospitalist Progress Note Date of Service Oct 06, 2016. Subjective Pt evaluation today including: conversation w/ patient, physical exam, chart review, lab review, review of studies, review of inpatient medication list Patient is pleasantly confused. Patient denies CP, SOB, abdominal pain, or pain - ROS limited due to dementia, unsure of how reliable limited ROS is. Unsure of patient's mental baseline. Medications Current Inpatient Medications Medications (Trade) Dose Ordered Sig/Luis Alberto Route Start Time Stop Time Status Last Admin Dose Admin Atorvastatin Calcium (Lipitor Tab) 20 mg QAM PO 10/06/16 09:00 11/05/16 08:59 10/06/16 07:47 20 MG Calcium Carbonate (Calcium Carbonate Susp) 1,250 mg DAILY PO 10/06/16 09:00 11/05/16 08:59 10/06/16 07:47 1,250 MG Clopidogrel Bisulfate (plAVix TAB) 75 mg QAM PO 10/06/16 09:00 11/05/16 08:59 10/06/16 07:47 75 MG Donepezil HCl (Aricept Tab) 10 mg HS PO 10/05/16 21:00 11/04/16 20:59 10/05/16 22:09 10 MG Levetiracetam (Keppra Tab) 250 mg BID PO 10/05/16 21:00 11/04/16 20:59 10/06/16 07:47 250 MG Levothyroxine Sodium (Synthroid Tab) 50 mcg DAILYBB PO 10/06/16 06:30 11/05/16 06:59 10/06/16 06:17 50 MCG Heparin Sodium (Porcine) (Heparin Sq 5000 Unit/0.5ml) 5,000 unit Q12 SQ 10/05/16 21:00 11/04/16 20:59 10/06/16 07:50 5,000 UNIT Al Hydrox/Mg Hydrox/Simethicone (Maalox Max Susp) 15 ml Q4H PRN PO 10/05/16 19:15 11/04/16 19:14 Magnesium Hydroxide (Milk Of Magnesia Susp) 30 ml Q12H PRN PO 10/05/16 19:15 11/04/16 19:14 Ondansetron HCl (Zofran Inj) 4 mg Q6H PRN IV 10/05/16 19:15 11/04/16 19:14 Polyethylene (Miralax Powder Packet) 17 gm DAILY PRN PO 10/05/16 19:15 11/04/16 19:14 Miscellaneous (Iv Fluids Completed) 1 ea PRN PRN N/A 10/05/16 21:15 10/05/17 21:14 Objective Vital Signs Date Time Temp Pulse Resp B/P Pulse Ox O2 Delivery O2 Flow Rate FiO2 10/06/16 12:00 Room Air 10/06/16 11:20 36.6 82 18 117/71 95 Room Air 10/06/16 07:45 Room Air 10/06/16 07:33 36.3 66 18 148/74 95 Room Air 10/06/16 04:00 Room Air 10/06/16 03:03 36.5 79 20 129/75 95 Room Air 10/06/16 00:00 Room Air 10/05/16 23:06 36.6 79 20 100/59 95 Room Air 10/05/16 22:00 36.4 77 20 162/84 96 Room Air 10/05/16 21:01 66 17 137/68 97 10/05/16 19:34 66 17 137/68 97 Room Air 10/05/16 18:59 68 16 149/76 97 Room Air 10/05/16 18:30 69 16 131/73 97 Room Air 10/05/16 18:18 72 16 141/77 96 Room Air 10/05/16 18:02 64 18 12/93 98 Room Air 10/05/16 18:00 69 10/05/16 17:41 96 Room Air 10/05/16 17:40 65 18 130/65 97 Room Air 10/05/16 17:20 37.0 78 18 135/67 96 Room Air Physical Exam General Appearance: no apparent distress, + thin Eyes: normal inspection, PERRL ENT: hearing grossly normal Neck: supple Respiratory/Chest: lungs clear, no respiratory distress, no accessory muscle use Cardiovascular: regular rate, rhythm Abdomen: normal bowel sounds, non tender, soft Extremities: no pedal edema, no calf tenderness Neurologic/Psychiatric: alert, normal mood/affect, + disoriented Skin: normal color, warm/dry, no rash Laboratory Results Last 24 Hours Test 10/05/16 17:45 10/05/16 19:00 10/06/16 00:00 10/06/16 06:33 White Blood Count 6.27 K/uL 5.34 K/uL Red Blood Count 4.15 M/uL 4.00 M/uL Hemoglobin 12.9 g/dL 12.5 g/dL Hematocrit 37.5 % 36.1 % Mean Corpuscular Volume 90.4 fL 90.3 fL Mean Corpuscular Hemoglobin 31.1 pg 31.3 pg Mean Corpuscular Hemoglobin Concent 34.4 g/dl 34.6 g/dl Platelet Count 225 K/uL 205 K/uL Mean Platelet Volume 10.0 fL 10.1 fL Neutrophils (%) (Auto) 67.9 % 62.3 % Lymphocytes (%) (Auto) 21.2 % 23.8 % Monocytes (%) (Auto) 7.5 % 9.2 % Eosinophils (%) (Auto) 2.6 % 3.6 % Basophils (%) (Auto) 0.6 % 0.7 % Neutrophils # (Auto) 4.26 K/uL 3.33 K/uL Lymphocytes # (Auto) 1.33 K/uL 1.27 K/uL Monocytes # (Auto) 0.47 K/uL 0.49 K/uL Eosinophils # (Auto) 0.16 K/uL 0.19 K/uL Basophils # (Auto) 0.04 K/uL 0.04 K/uL RDW Standard Deviation 47.3 fL 46.7 fL RDW Coefficient of Variation 14.2 % 14.1 % Immature Granulocyte % (Auto) 0.2 % 0.4 % Immature Granulocyte # (Auto) 0.01 K/uL 0.02 K/uL Prothrombin Time 9.8 SECONDS Prothromb Time International Ratio 0.9 Activated Partial Thromboplast Time 23.6 SECONDS Partial Thromboplastin Ratio 0.9 Sodium Level 141 mmol/L 140 mmol/L Potassium Level 4.2 mmol/L 4.0 mmol/L Chloride Level 105 mmol/L 107 mmol/L Carbon Dioxide Level 26 mmol/L 25 mmol/L Anion Gap 10.0 mmol/L 8.0 mmol/L Blood Urea Nitrogen 28 mg/dl 18 mg/dl Creatinine 1.00 mg/dl 0.96 mg/dl Est Creatinine Clear Calc Drug Dose 28.9 ml/min 30.0 ml/min Estimated GFR () 57.8 60.8 Estimated GFR (Non- 49.9 52.4 BUN/Creatinine Ratio 28.3 18.9 Random Glucose 94 mg/dl 88 mg/dl Calcium Level 8.7 mg/dl 8.4 mg/dl Total Creatine Kinase 177 U/L Creatine Kinase MB 2.1 ng/ml Creatine Kinase MB Ratio 1.2 Troponin I < 0.015 ng/ml Urine Opiates Screen NEG Urine Methadone, Qualitative NEG Urine Barbiturates NEG Urine Phencyclidine (PCP) Level NEG Ur Amphetamine/Methamphetamine NEG MDMA (Ecstasy) Screen NEG Urine Benzodiazepines Screen NEG Urine Cocaine Metabolite NEG Urine Marijuana (THC) NEG Urine Color YELLOW Urine Appearance CLEAR Urine pH 6.5 Urine Specific [place] 1.007 Urine Protein NEG Urine Glucose (UA) NEG Urine Ketones NEG Urine Occult Blood NEG Urine Nitrite NEG Urine Bilirubin NEG Urine Urobilinogen NEG Urine Leukocyte Esterase TRACE Urine WBC (Auto) 1-5 /hpf Urine RBC (Auto) 0-4 /hpf Urine Hyaline Casts (Auto) 0 /lpf Urine Epithelial Cells (Auto) 0-5 /lpf Urine Bacteria (Auto) NEG Triglycerides Level 96 mg/dl Cholesterol Level 153 mg/dl HDL Cholesterol 69 mg/dl LDL Cholesterol, Calculated 65 mg/dl VLDL Cholesterol, Calculated 19 mg/dl Cholesterol/HDL Ratio 2.2 Assessment and Plan This is an 89-year-old female who presents to Emergency Room with difficulty speaking that started around 4:00 p.m. The symptoms lasted for about 30 minutes and resulted in the way to Emergency Room. As per patient's daughter, patient experienced episode of incoherent sounds instead of words. She was also experiencing headache at that time but did not have any facial droop or weakness. As per patient's , she did not take her blood thinners regularly. She has no past neurological history. She has no complaints. Transient ischemic attack: - Admit to telemetry - Checked head CT, MRI of the brain, ultrasound of carotids and ECHO - Continue with Plavix - PT/OT evaluations - Continue Lipitor. Reviewed lipid panel - Check U/A- negative Hypothyroidism: Continue levothyroxine 50 mcg p.o. daily Mild dementia: Continue Aricept 10 mg p.o. daily Partial seizures: Continue Keppra 250 mg PO BID GI Prophylaxis: - Maalox PRN - IV Zofran PRN - Colace and/or Milk of Mag PRN DVT prophylaxis: - Heparin 5000 units SQ q12 hrs Code Status: - LEVEL I, FULL Dispo: Discharge to ?home. PT/OT evaluations. Talked to on phone- wanted me to discuss with daughter, Lashon. Attempted to call daughter twice, no answer.
[2016-10-06 15:22] VITALS: BP 165/76; PULSE 82; TEMP 36.5; O2SAT 96
[2016-10-06 16:36] VITALS: BP 165/76; PULSE 82; TEMP 36.5; O2SAT 96
== END 2016-10-06 17:12 | disposition home or self-care (01) ==
LOC: ENRESERVTM → ENRESERVDT → C.EDB 17:17 → C.MED 19:07
PROVIDERS: ADMIT Hospitalist; ATTEND Family Medicine
DX: G45.9 Transient cerebral ischemic attack, unspecified (principal); R47.02 Dysphasia; J44.9 Chronic obstructive pulmonary disease, unspecified; K21.9 Gastro-esophageal reflux disease without esophagitis; I10 Essential (primary) hypertension; E03.9 Hypothyroidism, unspecified; M81.0 Age-related osteoporosis without current pathological fracture; F03.90 Unspecified dementia, unspecified severity, without behavioral disturbance, psychotic disturbance, mood disturbance, and anxiety; R56.9 Unspecified convulsions; Z79.02 Long term (current) use of antithrombotics/antiplatelets; Z79.899 Other long term (current) drug therapy; Z82.49 Family history of ischemic heart disease and other diseases of the circulatory system; Z86.73 Personal history of transient ischemic attack (TIA), and cerebral infarction without residual deficits